=== PATIENT | female | born 1980 | race Caucasian/White ===

== ENCOUNTER 2017-07-17 12:54 | Emergency (ER) | payer MEDICAID ==
[2017-07-17 13:16] VITALS: BP 114/63; PULSE 74; RESP 16; TEMP 98.4; O2SAT 98
== END 2017-07-17 14:36 | disposition left against medical advice (07) ==
DX: Z53.21 Procedure and treatment not carried out due to patient leaving prior to being seen by health care provider (principal)

== ENCOUNTER 2017-07-31 08:20 | Emergency (ER) | payer MEDICAID ==
[2017-07-31 08:25] VITALS: RESP 16
[2017-07-31] MEDS ORDERED: ONDANSETRON DISINTEGRATING 4 MG TAB PO ONE (09:12)
[2017-07-31] MEDS ORDERED: DEXAMETHASONE 4 MG TAB PO ONE (09:12)
--- NOTE | 2017-07-31 09:16 | EDPHY ---
General Narrative: CHIEF COMPLAINT: Sinus infection, abscess tooth, nausea HISTORY OF PRESENT ILLNESS: Patient complains of sinus infection, dental abscess that started draining last night. She says that she has been treated for a sinus infection over the past week with Z-Dat. She notes minimal improvement with the medication. Last night she says that "the abscess burst and start draining into my throat, making my pancreatitis worse." She noted some nausea with this. She says there is right dental pain and feels as though it is still draining. No fever. No difficulty opening or closing her mouth. Nausea with intake by mouth. No abdominal pain at this time. No other associated complaints or modifying factors. REVIEW OF SYSTEMS: Ten systems reviewed and are negative unless otherwise noted in the HPI PCP: Dr. Dolan SPECIALISTS: None PAST MEDICAL HISTORY: No ongoing medical problems SOCIAL HISTORY: Daily smoker. Recently relocated from [place], [place] no dentist at this time FAMILY HISTORY: EXAMINATION General Appearance: Alert, no distress Head: normocephalic, atraumatic Eyes: Pupils equal and round, no conjunctival pallor or injection ENT, Mouth: Mucous membranes moist. Uvula is midline and airway is widely patent. There is no edema or asymmetry of the pharynx. There is likely ruptured abscess on tooth 4., in the hard palate. There is no palpable fluctuance. No trismus. Bilateral serous otitis media without acute otitis media or perforation. There is sinus tenderness to both maxillary sinuses, right greater than left. Opacity of the right maxillary sinus by otoscope. Neck: Normal inspection, supple, non-tender Respiratory: Lungs are clear to auscultation Cardiovascular: Regular rate and rhythm. No murmur Gastrointestinal: Abdomen is soft and nontender. No tympany rigidity. No guarding Neurological: A&O, nonfocal, normal gait Skin: Warm and dry, no rash Extremities: Nontender, no pedal edema Psychiatric: Mood and affect normal DIFFERENTIAL DIAGNOSES: Including but not limited to dental abscess, peritonsillar abscess, Austyn's angina, tonsillitis, sinusitis MDM: 9:12 a.m. Sinus infection with spontaneous drainage of a right dental abscess. I do not appreciate any fluctuance or palpable abscess that warrants further incision or drainage. I do not see any evidence of peritonsillar abscess or abnormality of the floor of the mouth. She has no trismus. She has no facial cellulitis or edema. I do feel she warrants treatment with Augmentin or penicillin for the dental infection, steroid and pseudoephedrine for the sinus infection. I would like her to contact her primary care physician and dentist for outpatient follow -up early next week. We discussed ED precautions. We discussed clear liquid intake and nausea medication. She is in no acute distress and vital signs were well within normal limits. She is comfortable this plan. First dose of steroid and nausea medication given here. Discharged home with Augmentin, promethazine, and short burst of steroid. I have also provided the information for dental aid for follow-up. SUPERVISION: Patient was independently examined, but I discussed the case with my secondary supervising physician Dr. Beckett - History Smoking Status: Current every day smoker - Objective Vital Signs: Initial Vital Signs Temperature (C) 97.5 F 07/31/17 08:24 Heart Rate 75 07/31/17 08:24 Respiratory Rate 16 07/31/17 08:24 Blood Pressure 132/73 H 07/31/17 08:24 O2 Sat (%) 99 07/31/17 08:24 O2 Delivery Mode Room Air Allergies/Adverse Reactions: cefaclor [From Ceclor] Allergy (Verified 07/31/17 08:22) Anaphylaxis Home Medications: Medication Instructions Recorded No Known Home Meds 07/17/17 Amoxicillin/Clavulanate Pot 875 mg PO BID #20 tab 07/31/17 [Augmentin 875 MG TAB (*)] Dexamethasone [Decadron 4 MG (*)] 8 mg PO DAILY #2 tab 07/31/17 Hydrocodone/APAP 5/325 [[place] 1 - 2 tab PO Q4H PRN #7 tab 07/31/17 5/325 (*)] Pseudoephedrine HCl 30 mg PO QID PRN #12 tablet 07/31/17 Departure - Departure Disposition: Home, Routine, Self-Care Clinical Impression: Dental abscess, Nausea Sinusitis, acute maxillary Qualifiers: Recurrence: non-recurrent Qualified Code(s): J01.00 - Acute maxillary sinusitis , unspecified Condition: Good Instructions: Sinusitis (ED), Dental Abscess (ED), Acute Nausea and Vomiting ( ED) Additional Instructions: 1. Medications as prescribed to completion 2. Contact your primary care physician for outpatient follow-up 3. Contact dental aid or a dentist for outpatient follow-up for definitive care of the dental abscess 4. ED precautions as discussed 5. Continue salt water rinses as previously Referrals: Brandyn Graham MD [Primary Care Provider] - As per Instructions [facility] [Outside] - As per Instructions Prescriptions: Amoxicillin/Clavulanate Pot [Augmentin 875 MG TAB (*)] 875 mg PO BID #20 tab Dexamethasone [Decadron 4 MG (*)] 8 mg PO DAILY #2 tab Hydrocodone/APAP 5/325 [[place]han 5/325 (*)] 1 - 2 tab PO Q4H PRN #7 tab PRN Reason: Pain, Moderate Pseudoephedrine HCl 30 mg PO QID PRN #12 tablet PRN Reason: sinusitis
[2017-07-31 09:29] VITALS: BP 125/80; PULSE 88; TEMP 98.6; O2SAT 98
== END 2017-07-31 09:29 | disposition home or self-care (01) ==
DX: K04.7 Periapical abscess without sinus (principal); J01.00 Acute maxillary sinusitis, unspecified; R11.0 Nausea; F17.200 Nicotine dependence, unspecified, uncomplicated

== ENCOUNTER 2017-08-21 08:39 | Emergency (ER) | payer MEDICAID ==
[2017-08-21] MEDS ORDERED: NS 1,000 ML IV ONE (09:13)
[2017-08-21] MEDS ORDERED: ONDANSETRON 4 MG/2 ML VIAL IVP ONE (09:14)
[2017-08-21] MEDS ORDERED: HYDROmorphONE/DILAUDID 1 MG/ML INJ IVP ONE (09:14)
[2017-08-21 09:24] LABS: PLATELET COUNT 322 10^3/uL (150-400)
--- NOTE | 2017-08-21 11:55 | EDPHY ---
H & P Stated Complaint: Productive cough x 2 days;congested;n/v/d Time Seen by Provider: 08/21/17 08:50 HPI/ROS: Chief complaint: Cold symptoms, nausea, vomiting and diarrhea. History of present illness: This is a 37-year-old female who presents to the emergency department for cold symptoms as well as nausea, vomiting and diarrhea. She reports the onset of symptoms over the last 2-3 days. She reports fevers, she reports nonproductive cough. She has had associated nausea and vomiting and diarrhea. Intermittent abdominal pain only when she vomits. She further reports generalized malaise. She is concerned she has the flu. She also reports she has a history of pancreatitis and is concerned she has an acute pancreatitis flare. She is currently on clindamycin as she is getting ready to have a tooth extracted. She denies other associated signs or symptoms including no trouble breathing, no rash, no urinary symptoms. Review of systems: A 10 point review of systems was obtained and other than described above was negative - Personal History LMP (Females 10-55): Now Current Tetanus Diphtheria and Acellular Pertussis (TDAP): Yes Tetanus Vaccine Date: 5 x years ago - Medical/Surgical History Hx Asthma: Yes Hx Chronic Respiratory Disease: Yes Hx Diabetes: No Hx Cardiac Disease: No Hx Renal Disease: No Hx Cirrhosis: No Hx Alcoholism: No Hx HIV/AIDS: No Hx Splenectomy or Spleen Trauma: No Other PMH: Pancreatitis, cholecystectomy, asthma, 2 x c-sections, tonsillectomy , tubes tied, PCOS, pneumonia - Social History Smoking Status: Current every day smoker - Physical Exam Exam: General Appearance: Alert, nontoxic. Eyes: Pupils equal and round no pallor or injection. ENT, Mouth: Tympanic membranes, external auditory canals, external ears and surrounding soft tissue including over the mastoids are unremarkable. Nasopharynx is not injected. There is no rhinorrhea. Oropharynx is injected. There is no edema. There is no exudate. There is no asymmetry. The uvula is midline. No elevation of the tongue. There is no hoarseness, no drooling, no trismus, no stridor. Respiratory: There are no retractions, lungs are clear to auscultation. Cardiovascular: Regular rate and rhythm. Gastrointestinal: Abdomen is soft and non tender, no masses, bowel sounds normal. Neurological: Alert and oriented x4. Strength and sensation intact and symmetrical. No meningismus. Skin: Warm and dry, no rashes. Musculoskeletal: Neck is supple non tender. Extremities are symmetrical, full range of motion. Psychiatric: Patient is oriented X 3, there is no agitation. Constitutional: Initial Vital Signs Temperature (C) 36.5 C 08/21/17 08:40 Heart Rate 84 08/21/17 08:40 Respiratory Rate 18 08/21/17 08:40 Blood Pressure 130/85 H 08/21/17 08:40 O2 Sat (%) 98 08/21/17 08:40 O2 Delivery Mode Room Air Allergies/Adverse Reactions: cefaclor [From Ceclor] Allergy (Severe, Verified 08/21/17 08:41) resp difficulty/swelling Home Medications: Medication Instructions Recorded Clindamycin HCl [Clindamycin] 300 mg PO 08/21/17 Ondansetron Odt [Zofran Odt 4 mg 4 mg PO Q4 #10 tab 08/21/17 (*)] Medical Decision Making - Diagnostics Imaging Results: Imaging Impressions Chest X-Ray 08/21/17 09:13 Impression: Findings most consistent with bronchitis/airways disease are noted. Imaging: I viewed and interpreted images myself ED Course/Re-evaluation: Patient seen under the supervision of my secondary supervising physician Dr. Brendan Gillespie. Patient presents to the emergency department with cold symptoms and nausea vomiting and diarrhea. On presentation she is nontoxic. Vital signs are stable. She has a benign physical exam including benign abdominal exam. Blood studies are unremarkable. Urinalysis unremarkable. Chest x-ray is unremarkable. Negative for the flu. She is symptomatically treated with improvement in symptoms. I have offered further evaluation including CT scan of the abdomen pelvis but she has declined. I have attempted to obtain stool studies specifically for C diff she has been on clindamycin, she has not had a bowel movement in the emergency room. She is comfortable following up with her primary care doctor. She also needs referrals to ENT doctor and this is been provided. I also referred to GI she reports a history of chronic pancreatitis. Home care is discussed. Strict return precautions are provided. Patient voiced understanding and agreement with plan. Differential Diagnosis: Included but not limited to influenza, bronchitis, pneumonia, he gastritis, gastroenteritis, biliary tract disease, pancreatitis, colitis - Data Points Laboratory Results: Laboratory Results 08/21/17 09:00 08/21/17 09:00 08/21/17 08/21/17 08/21/17 09:35 09:16 09:00 WBC RBC Hgb Hct MCV MCH MCHC RDW Plt Count MPV Neut % (Auto) Lymph % (Auto) [place] % (Auto) Eos % (Auto) Baso % (Auto) Nucleat RBC Rel Count Absolute Neuts (auto) Absolute Lymphs (auto) Absolute Monos (auto) Absolute Eos (auto) Absolute Basos (auto) Absolute Nucleated RBC Immature Gran % Immature Gran # Sodium Potassium Chloride Carbon Dioxide Anion Gap BUN Creatinine Estimated GFR Glucose Calcium Total Bilirubin Conjugated Bilirubin Unconjugated Bilirubin AST ALT Alkaline Phosphatase Total Protein Albumin Lipase Beta HCG, Qual NEGATIVE Urine Color YELLOW Urine Appearance HAZY Urine pH 5.0 (5.0-7.5) Ur Specific [place] 1.012 (1.002-1.030) Urine Protein NEGATIVE (NEGATIVE) Urine Ketones NEGATIVE (NEGATIVE) Urine Blood 3+ H (NEGATIVE) Urine Nitrate NEGATIVE (NEGATIVE) Urine Bilirubin NEGATIVE (NEGATIVE) Urine Urobilinogen NEGATIVE EU EU (0.2-1.0) Ur Leukocyte Esterase TRACE H (NEGATIVE) Urine RBC 50-182 /hpf H /hpf (0-3) Urine WBC 1-3 /hpf /hpf (0-3) Ur Epithelial Cells TRACE /lpf /lpf (NONE-1+) Urine Bacteria TRACE /hpf H /hpf (NONE SEEN) Urine Mucus TRACE /lpf /lpf (NONE-1+) Urine Glucose NEGATIVE (NEGATIVE) Nasal Influenza A PCR NEGATIVE FOR FLU A (NEGATIVE) Nasal Influenza B PCR NEGATIVE FOR FLU B (NEGATIVE) 08/21/17 08/21/17 09:00 09:00 WBC 8.63 10^3/uL 10^3/uL (3.80-9.50) RBC 4.71 10^6/uL 10^6/uL (4.18-5.33) Hgb 13.9 g/dL g/dL (12.6-16.3) Hct 41.7 % % (38.0-47.0) MCV 88.5 fL fL (81.5-99.8) MCH 29.5 pg pg (27.9-34.1) MCHC 33.3 g/dL g/dL (32.4-36.7) RDW 15.5 % H % (11.5-15.2) Plt Count 322 10^3/uL 10^3/uL (150-400) MPV 9.6 fL fL (8.7-11.7) Neut % (Auto) 66.3 % % (39.3-74.2) Lymph % (Auto) 24.3 % % (15.0-45.0) [place] % (Auto) 6.0 % % (4.5-13.0) Eos % (Auto) 2.4 % % (0.6-7.6) Baso % (Auto) 0.5 % % (0.3-1.7) Nucleat RBC Rel Count 0.0 % % (0.0-0.2) Absolute Neuts (auto) 5.72 10^3/uL 10^3/uL (1.70-6.50) Absolute Lymphs (auto) 2.10 10^3/uL 10^3/uL (1.00-3.00) Absolute Monos (auto) 0.52 10^3/uL 10^3/uL (0.30-0.80) Absolute Eos (auto) 0.21 10^3/uL 10^3/uL (0.03-0.40) Absolute Basos (auto) 0.04 10^3/uL 10^3/uL (0.02-0.10) Absolute Nucleated RBC 0.00 10^3/uL 10^3/uL (0-0.01) Immature Gran % 0.5 % % (0.0-1.1) Immature Gran # 0.04 10^3/uL 10^3/uL (0.00-0.10) Sodium 143 mEq/L mEq/L (135-145) Potassium 4.6 mEq/L mEq/L (3.5-5.2) Chloride 109 mEq/L mEq/L (97-110) Carbon Dioxide 22 mEq/l mEq/l (22-31) Anion Gap 12 mEq/L mEq/L (8-16) BUN 11 mg/dL mg/dL (7-23) Creatinine 0.8 mg/dL mg/dL (0.6-1.0) Estimated GFR > 60 Glucose 88 mg/dL mg/dL (70-100) Calcium 9.7 mg/dL mg/dL (8.5-10.4) Total Bilirubin 0.4 mg/dL mg/dL (0.1-1.4) Conjugated Bilirubin 0.2 mg/dL mg/dL (0.0-0.5) Unconjugated Bilirubin 0.2 mg/dL mg/dL (0.0-1.1) AST 23 IU/L IU/L (14-46) ALT 38 IU/L IU/L (9-52) Alkaline Phosphatase 94 IU/L IU/L (38-126) Total Protein 7.1 g/dL g/dL (6.3-8.2) Albumin 4.4 g/dL g/dL (3.5-5.0) Lipase 91 IU/L IU/L (23-300) Beta HCG, Qual Urine Color Urine Appearance Urine pH Ur Specific [place] Urine Protein Urine Ketones Urine Blood Urine Nitrate Urine Bilirubin Urine Urobilinogen Ur Leukocyte Esterase Urine RBC Urine WBC Ur Epithelial Cells Urine Bacteria Urine Mucus Urine Glucose Nasal Influenza A PCR Nasal Influenza B PCR Medications Given: Discontinued Medications Hydromorphone HCl (Dilaudid) 1 mg IVP EDNOW ONE Stop: 08/21/17 09:15 Last Admin: 08/21/17 09:25 Dose: 1 mg Sodium Chloride (Ns) 1,000 mls @ 0 mls/hr IV ONCE ONE; Wide Open PRN Reason: Protocol Stop: 08/21/17 09:14 Last Admin: 08/21/17 09:24 Dose: 1,000 mls Ondansetron HCl (Zofran) 4 mg IVP EDNOW ONE Stop: 08/21/17 09:15 Last Admin: 08/21/17 09:24 Dose: 4 mg Departure - Departure Disposition: Home, Routine, Self-Care Clinical Impression: Cough Vomiting Qualifiers: Vomiting type: unspecified Vomiting Intractability: non-intractable Nausea presence: with nausea Qualified Code(s): R11.2 - Nausea with vomiting, unspecified Diarrhea Qualifiers: Diarrhea type: unspecified type Qualified Code(s): R19.7 - Diarrhea, unspecified Condition: Good Instructions: Acute Nausea and Vomiting (ED), Acute Diarrhea (ED), Acute Cough (ED) Additional Instructions: Follow-up with a primary care doctor next week for recheck You have also been referred to ENT and GI doctors If symptoms worsen or new symptoms develop return to the emergency room for recheck Referrals: NONE *PRIMARY CARE P,. [Primary Care Provider] - As per Instructions [facility],. [Clinic] - As per Instructions Dante Bacon MD [Medical Doctor] - As per Instructions eLonel Armstrong MD [Medical Doctor] - As per Instructions Prescriptions: Ondansetron Odt [Zofran Odt 4 mg (*)] 4 mg PO Q4 #10 tab
[2017-08-21 12:06] VITALS: BP 126/64; PULSE 64; RESP 18; TEMP 98.1; O2SAT 98
== END 2017-08-21 12:06 | disposition home or self-care (01) ==
DX: R11.2 Nausea with vomiting, unspecified (principal); R05 Cough; R19.7 Diarrhea, unspecified; F17.200 Nicotine dependence, unspecified, uncomplicated; J45.909 Unspecified asthma, uncomplicated; E86.9 Volume depletion, unspecified
CPT/HCPCS: 96374; J1170; J2405

== ENCOUNTER 2017-09-30 14:52 | Emergency (ER) | payer MEDICAID ==
[2017-09-30 14:58] VITALS: BP 115/72; PULSE 81; RESP 17; TEMP 98.2; O2SAT 96
--- NOTE | 2017-09-30 15:10 | EDPHY ---
H & P Time Seen by Provider: 09/30/17 15:08 HPI/ROS: CHIEF COMPLAINT: Toothache HISTORY OF PRESENT ILLNESS: Patient with see her dentist on Wednesday this week for a right lower molar that was painful. It was partially pulled but the tooth fractured. She presents today with a toothache on the right lower jaw which is severe. Not associated with trouble breathing or swallowing. Radiates into the right ear. Worse with hot cold or pressure. REVIEW OF SYSTEMS: Eye: no change in vision ENT: HPI, right earache Cardiac: No chest pain Pulmonary: Chronic wheezing from her asthma but not short of breath. Abdomen: Vomiting and diarrhea over the last 48 hr, no abdominal pain Musculoskeletal: no back pain Skin: no rash Neuro: Mild headache which she thinks is from her right jaw Constitutional: no fever : no urinary symptoms A comprehensive 10 point review of systems is otherwise negative aside from elements mentioned in the history of present illness. PAST MEDICAL HISTORY: Includes pancreatitis, cholecystectomy, asthma, C- section x2, tubal ligation Social history: Smoker General Appearance: Alert and conversant, cooperative. Eyes: No scleral icterus. Extraocular motion intact. ENT, Mouth: Normal tympanic membranes. No trismus. She does have a fractured remnant of a right lower molar with some associated gum swelling but no pus or drainage or discharge, it is tender to percussion. No other intraoral lesions. Uvula is midline. Normal voice and no stridor or drooling. Respiratory: Normal respiratory effort and speaks full sentences, mild bilateral expiratory wheezing but no focal lung sounds. Cardiovascular: Regular rate and rhythm. Gastrointestinal: Abdomen is soft and non tender. Neurological: Alert, face symmetric, normal motor and sensory in extremities. Skin: No facial redness or swelling over the area of pain. Musculoskeletal: No edema Psychiatric: Not agitated. Emergency Department course/MDM: Patient presents with nausea vomiting diarrhea and a toothache, she has taken amoxicillin before without allergy reaction even though she has a state allergic reaction to cephalosporins. She has been on clindamycin for about a month prior to her recent dental procedure. She does not look toxic and is not tachycardic. I think it is reasonable to prescribe her oral amoxicillin and Zofran ODT, increase oral fluids, she has pain medication. Warned she needs to follow up with her dentist or referral oral surgeon in the next 24 hr. Smoking Status: Current every day smoker Constitutional: Initial Vital Signs Temperature (C) 36.8 C 09/30/17 14:55 Heart Rate 81 09/30/17 14:55 Respiratory Rate 17 09/30/17 14:55 Blood Pressure 115/72 09/30/17 14:55 O2 Sat (%) 96 09/30/17 14:55 O2 Delivery Mode Room Air Allergies/Adverse Reactions: cefaclor [From [facility]] Allergy (Severe, Verified 09/30/17 14:54) resp difficulty/swelling Home Medications: Medication Instructions Recorded Amoxicillin Trihydrate [Amoxil] 500 mg PO TID 7 Days cap 09/30/17 Ondansetron Odt [Zofran Odt] 4 mg PO Q4PRN #10 tab 09/30/17 Percocet 5-325 mg Tablet 09/30/17 Departure - Departure Disposition: Home, Routine, Self-Care Clinical Impression: Tooth pain Condition: Good Instructions: Toothache (ED) Additional Instructions: Please see your dentist or oral surgeon Dr. Mc in the next 24 hr. Referrals: Brandyn Graham MD [Primary Care Provider] - As per Instructions Loki Mc DDS [Doctor of Dental Surgery] - As per Instructions Prescriptions: Amoxicillin Trihydrate [Amoxil] 500 mg PO TID 7 Days cap Ondansetron Odt [Zofran Odt] 4 mg PO Q4PRN #10 tab
== END 2017-09-30 15:33 | disposition home or self-care (01) ==
DX: K08.89 Other specified disorders of teeth and supporting structures (principal); J45.909 Unspecified asthma, uncomplicated; F17.200 Nicotine dependence, unspecified, uncomplicated

== ENCOUNTER 2018-01-13 12:26 | Emergency (ER) | payer MEDICAID ==
[2018-01-13 13:04] LABS: PLATELET COUNT 360 10^3/uL (150-400)
[2018-01-13] MEDS ORDERED: ONDANSETRON 4 MG/2 ML VIAL IVP ONE (13:08)
[2018-01-13] MEDS ORDERED: NS 1,000 ML IV ONE (13:08)
--- NOTE | 2018-01-13 13:08 | EDPHY ---
General Time Seen by Provider: 01/13/18 12:58 Narrative: CHIEF COMPLAINT: Abdominal pain, nausea vomiting, pancreatitis HISTORY OF PRESENT ILLNESS: Patient presents with complaints of abdominal pain and nausea vomiting, and she states that "I think it's pancreatitis again." She reports approximately 2 weeks of nausea and vomiting with 24 hr of severe, 10 of 10 abdominal pain. The pain is generalized. Worse with palpation and movement. She has been unable to keep any liquids or solids down. No fever chills. No trauma or injury. She reports history of pancreatitis of unknown etiology and denies a history of alcohol use or abuse. She says she has been hospitalized for this in the past but denies any known diagnosis of pseudocyst and no surgical intervention for this. She feels that the pain is the same as previous episodes of pancreatitis. She says she has felt well for the past few months until last 2 weeks. No other associated complaints or modifying factors. REVIEW OF SYSTEMS: Ten systems reviewed and are negative unless otherwise noted in the HPI PCP: Dr. Graham SPECIALISTS: [facility] [place] PAST MEDICAL HISTORY: Pancreatitis cholecystitis, PCOS PAST SURGICAL HISTORY: x2 tubal ligation, tonsillectomy, cholecystectomy SOCIAL HISTORY: Quit smoking 1 week ago 1 pack per day history. No alcohol use. Occasional marijuana use. Lives here independently with her significant other. FAMILY HISTORY: Noncontributory EXAMINATION General Appearance: Alert, no distress Head: normocephalic, atraumatic Eyes: Pupils equal and round, no conjunctival pallor or injection ENT, Mouth: Mucous membranes moist Neck: Normal inspection, supple, non-tender Respiratory: Lungs are clear to auscultation Cardiovascular: Regular rate and rhythm. No murmur Gastrointestinal: Abdomen is soft and nondistended. There is tenderness in all 4 quadrants out of proportion to examination. No guarding. No rigidity. No tympany. No palpable mass. No CVA tenderness. Back: non-tender, no bony abnormalities Neurological: A&O, nonfocal, normal gait Skin: Warm and dry, no rash no petechiae or purpura Extremities: Nontender, no pedal edema Psychiatric: Mood and affect normal DIFFERENTIAL DIAGNOSES: Including but not limited to pancreatitis, gastritis, enteritis, colitis, diverticulitis MDM: 1:00 p.m. Abdominal pain of 1 day with nausea vomiting 2 weeks. Abdominal exam is nonacute, but she does have significant tenderness throughout. I have ordered CT scan abdomen pelvis given this and her history of pancreatitis. She is in no acute distress with vital signs stable. She does meet SIRS criteria. I have also ordered laboratory studies, IV fluid pain medication. 1:35 p.m. CBC reveals mild leukocytosis with mild shift. Chemistry unremarkable. CT pending. 2:35 p.m. Urinalysis unremarkable but CT scan is still pending. 3:20 p.m. Patient re-evaluated. She is just returned from CT scanner. She still complaining of pain with feels better. She has nausea but no vomiting. I will attempt a p.o. Trial with very small amount of water for p. O. Pain medication. 3:40 p.m. Notified by radiologist Dr. Cain. CT scan reveals evidence suggesting gastroenteritis. No evidence of bowel obstruction. I re-evaluated the patient discussed this. She was relieved to hear this. She says that she also has had some diarrhea that she forgot to tell me about, which matches clinically. I do feel she is stable for discharge home. We discussed clear liquid diet, advance slowly as tolerated. We discussed nausea medications, Maalox [id number]. 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 She is comfortable this plan and discharged home stable condition. SUPERVISION: Patient was independently examined, but I discussed the case with my secondary supervising physician Dr. House - History Smoking Status: Former smoker - Objective Vital Signs: Initial Vital Signs Temperature (C) 98.1 F 01/13/18 12:34 Heart Rate 57 L 01/13/18 12:34 Respiratory Rate 17 01/13/18 12:34 Blood Pressure 133/76 H 01/13/18 12:34 O2 Sat (%) 98 01/13/18 12:34 O2 Delivery Mode Room Air Allergies/Adverse Reactions: cef[facility]lor [From [facility]] Allergy (Severe, Verified 01/13/18 12:34) resp difficulty/swelling Home Medications: Medication Instructions Recorded Acetaminophen/Codeine 300/30Mg 1 each PO Q6 PRN #7 tab 01/13/18 [Tylenol #3 (*)] Ondansetron Odt [Zofran Odt 4 mg 4 mg PO Q6 PRN #12 tab 01/13/18 (*)] Promethazine HCl [Phenergan 25mg 25 mg PO Q8 PRN #12 tab 01/13/18 (*)] Laboratory Results: Laboratory Results 01/13/18 12:56 01/13/18 12:56 01/13/18 01/13/18 01/13/18 13:20 13:08 13:08 WBC RBC Hgb Hct MCV MCH MCHC RDW Plt Count MPV Neut % (Auto) Lymph % (Auto) [place] % (Auto) Eos % (Auto) Baso % (Auto) Nucleat RBC Rel Count Absolute Neuts (auto) Absolute Lymphs (auto) Absolute Monos (auto) Absolute Eos (auto) Absolute Basos (auto) Absolute Nucleated RBC Immature Gran % Immature Gran # Sodium Potassium Chloride Carbon Dioxide Anion Gap BUN Creatinine Estimated GFR Glucose Calcium Total Bilirubin Conjugated Bilirubin Unconjugated Bilirubin AST ALT Alkaline Phosphatase Total Protein Albumin Lipase Beta HCG, Qual NEGATIVE Urine Color YELLOW Urine Appearance HAZY Urine pH 6.0 (5.0-7.5) Ur Specific [place] 1.017 (1.002-1.030) Urine Protein NEGATIVE (NEGATIVE) Urine Ketones NEGATIVE (NEGATIVE) Urine Blood NEGATIVE (NEGATIVE) Urine Nitrate NEGATIVE (NEGATIVE) Urine Bilirubin NEGATIVE (NEGATIVE) Urine Urobilinogen NEGATIVE EU EU (0.2-1.0) Ur Leukocyte Esterase NEGATIVE (NEGATIVE) Urine RBC 1-3 /hpf /hpf (0-3) Urine WBC 0-1 /hpf /hpf (0-3) Ur Epithelial Cells TRACE /lpf /lpf (NONE-1+) Urine Glucose NEGATIVE (NEGATIVE) Ethyl Alcohol < 10 mg/dL mg/dL (0-10) 01/13/18 01/13/18 12:56 12:56 WBC 11.50 10^3/uL H 10^3/uL (3.80-9.50) RBC 4.69 10^6/uL 10^6/uL (4.18-5.33) Hgb 14.1 g/dL g/dL (12.6-16.3) Hct 41.8 % % (38.0-47.0) MCV 89.1 fL fL (81.5-99.8) MCH 30.1 pg pg (27.9-34.1) MCHC 33.7 g/dL g/dL (32.4-36.7) RDW 15.7 % H % (11.5-15.2) Plt Count 360 10^3/uL 10^3/uL (150-400) MPV 9.9 fL fL (8.7-11.7) Neut % (Auto) 61.4 % % (39.3-74.2) Lymph % (Auto) 26.4 % % (15.0-45.0) Waller % (Auto) 8.3 % % (4.5-13.0) Eos % (Auto) 2.9 % % (0.6-7.6) Baso % (Auto) 0.6 % % (0.3-1.7) Nucleat RBC Rel Count 0.0 % % (0.0-0.2) Absolute Neuts (auto) 7.06 10^3/uL H 10^3/uL (1.70-6.50) Absolute Lymphs (auto) 3.04 10^3/uL H 10^3/uL (1.00-3.00) Absolute Monos (auto) 0.95 10^3/uL H 10^3/uL (0.30-0.80) Absolute Eos (auto) 0.33 10^3/uL 10^3/uL (0.03-0.40) Absolute Basos (auto) 0.07 10^3/uL 10^3/uL (0.02-0.10) Absolute Nucleated RBC 0.00 10^3/uL 10^3/uL (0-0.01) Immature Gran % 0.4 % % (0.0-1.1) Immature Gran # 0.05 10^3/uL 10^3/uL (0.00-0.10) Sodium 140 mEq/L mEq/L (135-145) Potassium 4.6 mEq/L mEq/L (3.3-5.0) Chloride 107 mEq/L mEq/L (97-110) Carbon Dioxide 20 mEq/l L mEq/l (22-31) Anion Gap 13 mEq/L mEq/L (8-16) BUN 12 mg/dL mg/dL (7-23) Creatinine 0.8 mg/dL mg/dL (0.6-1.0) Estimated GFR > 60 Glucose 82 mg/dL mg/dL (70-100) Calcium 9.2 mg/dL mg/dL (8.5-10.4) Total Bilirubin 0.5 mg/dL mg/dL (0.1-1.4) Conjugated Bilirubin 0.5 mg/dL mg/dL (0.0-0.5) Unconjugated Bilirubin 0.0 mg/dL mg/dL (0.0-1.1) AST 28 IU/L IU/L (14-46) ALT 44 IU/L IU/L (9-52) Alkaline Phosphatase 115 IU/L IU/L (38-126) Total Protein 7.2 g/dL g/dL (6.3-8.2) Albumin 4.1 g/dL g/dL (3.5-5.0) Lipase 76 IU/L IU/L (23-300) Beta HCG, Qual Urine Color Urine Appearance Urine pH Ur Specific [place] Urine Protein Urine Ketones Urine Blood Urine Nitrate Urine Bilirubin Urine Urobilinogen Ur Leukocyte Esterase Urine RBC Urine WBC Ur Epithelial Cells Urine Glucose Ethyl Alcohol Medications Given: Discontinued Medications Sodium Chloride (Ns) 1,000 mls @ 0 mls/hr IV EDNOW ONE; Wide Open PRN Reason: Protocol Stop: 01/13/18 13:09 Last Admin: 01/13/18 13:25 Dose: 1,000 mls Morphine Sulfate (Morphine) 4 mg IVP EDNOW ONE Stop: 01/13/18 13:09 Last Admin: 01/13/18 13:25 Dose: 4 mg Ondansetron HCl (Zofran) 4 mg IVP EDNOW ONE Stop: 01/13/18 13:09 Last Admin: 01/13/18 13:25 Dose: 4 mg Departure - Departure Disposition: Home, Routine, Self-Care Clinical Impression: Gastroenteritis Condition: Good Instructions: Gastroenteritis (ED), Acute Nausea and Vomiting (ED) Additional Instructions: 1. Nausea medications as provided as needed 2. Contact your primary care physician and established GI physician for further care 3. ED precautions for worsening pain, intolerance of intake by mouth, fever, chills Referrals: Brandyn Graham MD [Primary Care Provider] - As per Instructions Prescriptions: Acetaminophen/Codeine 300/30Mg [Tylenol #3 (*)] 1 each PO Q6 PRN #7 tab PRN Reason: Pain, Mild Ondansetron Odt [Zofran Odt 4 mg (*)] 4 mg PO Q6 PRN #12 tab PRN Reason: Nausea/Vomiting, Use 1st Promethazine HCl [Phenergan 25mg (*)] 25 mg PO Q8 PRN #12 tab PRN Reason: Nausea/Vomiting, Use 1st
[2018-01-13] MEDS ORDERED: IOPAMIDOL (ISOVUE-300) 100 ML BTL ONE (14:51)
[2018-01-13] MEDS ORDERED: OXYCODONE/APAP 5/325 TAB PO ONE (15:28)
[2018-01-13 16:12] VITALS: BP 110/75
== END 2018-01-13 16:12 | disposition home or self-care (01) ==
DX: K52.9 Noninfective gastroenteritis and colitis, unspecified (principal); E86.9 Volume depletion, unspecified; Z87.891 Personal history of nicotine dependence; Z90.49 Acquired absence of other specified parts of digestive tract; Z98.51 Tubal ligation status
CPT/HCPCS: 96374; G0480; J2270; J2405; Q9967